=== PATIENT | female | born 1965 | race African-American/Black ===

== ENCOUNTER 2024-09-28 09:01 | Emergency (ER) | payer MEDICAID, SELFPAY ==
[2024-09-28 09:02] VITALS: BP 142/85; PULSE 89; RESP 14; TEMP 36.2; O2SAT 98; BMI 35.8
--- NOTE | 2024-09-28 09:10 | EKG12_ITS ---
Test Reason : CP Blood Pressure : */* mmHG Vent. Rate : 83 BPM Atrial Rate : 83 BPM P-R Int : 136 ms QRS Dur : 80 ms QT Int : 372 ms P-R-T Axes : 45 9 27 degrees QTcB Int : 437 ms Normal sinus rhythm Normal ECG Confirmed by RAMONA PRINCE, FELIZ ([id number]), online content editor PATRICIA CALLE ([id number]) on 09/29/2024 8:34:00 AM Referred By: AR Confirmed By: FELIZ GREENE MD
--- NOTE | 2024-09-28 09:11 | ED.VIS.CHEST ---
HPI History of Present Illness Chief Complaint: Chest Pain Narrative Narrative: 59-year-old female past medical history of hypertension presents with chest pain mainly on the left side of her chest that she has had intermittently over the last few weeks. She states she feels short of breath as well. She denies any fevers or chills, no nausea or vomiting. She states she has arthritis in her legs so at times that is the reason for any leg swelling, but no consistent pedal edema. She states that over the last few weeks, she has had periods of chest pain, burning, sometimes pressure mainly on the left side. It can be pleuritic in nature as well. Today, she has been up since 5 AM, over the last 4 hours, and states she has more burning in her chest as well as dizziness that has accompanied her chest pain. She states that she has been taking aspirin, and it usually makes her symptoms go away. She has had nonproductive cough on the rare occasion. No other exacerbating or alleviating factors. Non-smoker. PFSH [facility] Home Medications ?Medication ?Instructions ?Recorded ?Last Taken ?Type amlodipine 5 mg tablet 5 mg PO DAILY 09/28/24 09/28/24 History aspirin 81 mg tablet 81 mg PO DAILY 09/28/24 09/28/24 History omeprazole 20 mg capsule,delayed 20 mg PO DAILY #30 CAPSULES 09/28/24 Unknown Rx release Allergy/AdvReac Type Severity Reaction Status Date / Time No Known Allergies Allergy Verified 09/28/24 09:02 Social History Smoking Status: Never smoker ROS ROS ED ROS Narrative Review of systems positive for left-sided chest burning, sometimes pleuritic. Constant today. No fevers or chills. Occasional cough, nonproductive. No pedal edema. No exertional component. Positive dizziness. EXAM Physical Exam Narrative Exam Narrative: Afebrile. Vital signs noted. Nontoxic-appearing. Cardiovascular examination reveals a regular rate and rhythm. Lungs are clear to auscultation bilaterally. Abdomen is soft, nontender, with positive bowel sounds. No guarding or rebound. Neurological examination nonfocal, nonlateralizing. No appreciable pedal edema bilaterally. Const Vital Signs: 09/28/24 09:02 09/28/24 09:16 07/29/25 11:02 Temperature 97.1 F L Temperature Source Temporal Pulse Rate 89 64 Respiratory Rate 14 16 Blood Pressure 142/85 H 122/66 H Blood Pressure Mean 104 84 Pulse Ox 98 100 Oxygen Delivery Method Room Air Room Air Room Air MDM MDM MDM Narrative Medical decision making narrative: The differential diagnosis includes but not limited to acute coronary syndrome versus pneumothorax versus pneumonia versus pulmonary embolism. History and physical does not support aortic dissection as she is not having tearing back pain. I have lower suspicion for pulmonary embolism because she is PERC negative. She may be having hypertensive urgency versus emergency as well. However, she has a more appropriate blood pressure 142/85 in triage. EKG was obtained and interpreted by myself independently as normal sinus rhythm at 83 bpm without ectopy or acute ST changes. No STEMI. Chest x-ray interpreted by myself independently shows no evidence of an acute process, no pneumonia, no pneumothorax. I reviewed the radiology report which confirms my independent interpretation. Review of her CBC shows normal white count of 5.9 with hemoglobin normal at 12.4, hematocrit 38.0, platelet count normal at 300. BMP is grossly unremarkable with glucose normal at 82. Initial high-sensitivity troponin less than 6. D-dimer negative at 0.35. I have low suspicion for pulmonary embolism with this combined with her being PERC negative. Upon repeat examination, she is resting comfortably on the cot. 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 Additionally, she may be having more of a gastritis/reflux problem. I offered her a GI cocktail with lidocaine, but she prefers the antacid alone. I reviewed her repeat troponin at 2 hours and is also less than 6. I feel she has been ruled out for ACS with biomarkers. At this point in time, upon repeat examination she is feeling improved. I do feel that she probably has more of a GERD component to her chest burning. She told him to discontinue the aspirin and I wrote her a prescription for omeprazole 20 mg to take daily. She will follow-up with her primary care provider. I do not feel she requires observation or admission at this time. Return instructions to the emergency department were reviewed. Patient is motivated for discharge. Disposition is discharged home in stable condition. History & Record Review Discussion w/independent historian: Patient Additional record(s) reviewed:: No prior records (No prior ED visits) Lab Data Attestation: I reviewed the patient's lab results. Labs: Laboratory Results - last 24 hr 09/28/24 09/28/24 09:15 11:10 WBC 5.9 RBC 3.62 L Hgb 12.4 Hct 38.0 MCV 105.0 H MCH 34.3 H MCHC 32.6 RDW Std Deviation 48.4 H RDW Coeff of Alvin 12.3 Plt Count 300 MPV 9.7 Immature Gran % (Auto) 0.200 Neut % (Auto) 37.7 L Lymph % (Auto) 50.8 H [place] % (Auto) 9.7 Eos % (Auto) 0.9 Baso % (Auto) 0.7 Absolute Neuts (auto) 2.2 Absolute Lymphs (auto) 2.97 Nucleated RBC % 0 D-Dimer Quant (PE/DVT) 0.35 Sodium 140 Potassium 4.4 Chloride 105 Carbon Dioxide 22.1 Anion Gap 13 BUN 11 Creatinine 0.72 Estim Creat Clear Calc 96.16 Est GFR (MDRD) Non-Af 98 BUN/Creatinine Ratio 15.1 Glucose 82 Calcium 9.3 Troponin T High Sens < 6 Troponin T Hi Sens 2 Hr < 6 Radiography Diagnostic Testing: Clinical Impression(s) from Imaging Studies Chest X-Ray 09/28/24 09:19 IMPRESSION: No acute abnormality is seen. Reading Location: [facility] Discharge Plan Triage Chief Complaint: Chest Pain ED Provider: Amado Valderrama Dx/Rx/DC Orders Clinical Impression: Chest pain, Dizziness, GERD (gastroesophageal reflux disease) Instructions: Medicines for GERD, ED Chest Pain, Noncardiac, ED Dizziness, Uncertain Cause, ED GERD (Adult) Prescriptions: New omeprazole 20 mg capsule,delayed release(DR/EC) 20 mg PO DAILY Qty: 30 0RF No Action amlodipine 5 mg tablet 5 mg PO DAILY aspirin 81 mg tablet 81 mg PO DAILY Primary Care Provider: Taniya White Referrals: Taniya White, [Primary Care Provider] - 3-5 Days if not improving Activity Restrictions/Additional Instructions: Medication as directed. Follow-up with your primary care provider. Return with increased chest burning or pain, new or worsening symptoms. Print Language: Citizen Of [place] Disposition Disposition: Home, Self Care
--- NOTE | 2024-09-28 09:19 | RAD_ITS ---
PROCEDURE: CHEST 1 VIEW (PORTABLE) 09/28/2024 REASON FOR EXAM: CHEST PAIN TECHNIQUE: Frontal view of the chest. COMPARISON: None FINDINGS: Hardware: EKG electrodes are seen. Heart: The heart is not enlarged. Lungs: The lungs are clear. Bones: Degenerative changes are identified within the thoracic spine. Other: RAD/Chest 1 View (Portable) IMPRESSION: No acute abnormality is seen. Reading Location: [facility]
[2024-09-28 09:29] LABS: Hematocrit 38.0 % (37-47); Hemoglobin 12.4 g/dL (12.0-15.0); Immature Granulocytes Count 0.010 X10^3/uL (0.0-0.0); Mean Corp Hgb Conc 32.6 g/dL (32-36); Mean Corpuscular Volume 105.0 fL (81-99); Mean Platelet Vol. 9.7 fl (6.2-12.0); NRBC Flagged by Analyzer 0 % (0-5); Platelet Count 300 K/mm3 (150-450); RBC Distribution Width CV 12.3 % (11.6-14.6); RBC Distribution Width SD 48.4 fl (35.1-43.9); Red Blood Count 3.62 M/mm3 (4.2-5.4); White Blood Count 5.9 K/mm3 (4.4-11.0)
[2024-09-28 09:43] LABS: Anion Gap 13 (5-15); BUN 11 mg/dL (4-19); BUN/Creat Ratio 15.1 RATIO (10-20); Calcium,Total 9.3 mg/dL (7.6-11.0); Carbon Dioxide 22.1 mmol/L (21.0-32.0); Chloride 105 mmol/L (98-108); Estimated Creatinine Clearance 96.16 ml/min (50-250); Glucose 82 mg/dL (70-99); Potassium 4.4 mmol/L (3.3-5.1); Troponin T High Sensitivity < 6 ng/L (<=14)
[2024-09-28 10:11] LABS: D-Dimer Quantitative (DVT/PE) 0.35 FEU/ug/m (0.27-0.49)
[2024-09-28 11:02] VITALS: BP 122/66; PULSE 64; RESP 16; O2SAT 100
[2024-09-28 12:04] LABS: Troponin T High Sens 2 HR < 6 ng/L (<=14)
[2024-09-28 12:22] VITALS: BP 128/77; PULSE 78; RESP 16; TEMP 36.6; O2SAT 100
== END 2024-09-28 12:28 | disposition home or self-care (01) ==
PROVIDERS: Emergency Provider Emergency Medicine; PCP Family Medicine; Visit Provider Emergency Medicine
DX: R07.9 Chest pain, unspecified (principal); R42 Dizziness and giddiness; Z79.82 Long term (current) use of aspirin; K21.9 Gastro-esophageal reflux disease without esophagitis; I10 Essential (primary) hypertension; Z79.899 Other long term (current) drug therapy
CPT/HCPCS: 71045; 80048; 84484; 85025; 85379; 93005; 99284; A4216